=== PATIENT | male | born 1980 | race Caucasian/White ===

== ENCOUNTER 2016-08-15 13:18 | Emergency (ER) | payer BC ==
[2016-08-15] MEDS ORDERED: ACETAMINOPHEN IV (For NPO) 1,000 MG in EMPTY BAG 1 BAG IVPB STA (13:37)
[2016-08-15] MEDS ORDERED: FAMOTIDINE 20 MG/2 ML VIAL IV STA (13:39)
[2016-08-15] MEDS ORDERED: HYDROmorphone 1 MG/ML 1 ML SYRINGE IVP STA (13:39)
[2016-08-15] MEDS ORDERED: RX INFO: IV CONTRAST WAS GIVEN 1 EACH MISC MISCELLANE PRN (13:39)
[2016-08-15] MEDS ORDERED: METOCLOPRAMIDE 5 MG/ML 2 ML VIAL IVP STA (13:39)
--- NOTE | 2016-08-15 13:48 | ED ---
General Adult HPI - General Chief complaint: Abdominal Pain Stated complaint: Abd Pain Time Seen by Provider: 08/15/16 13:35 Source: patient, RN notes reviewed Mode of arrival: wheelchair Limitations: no limitations - History of Present Illness Initial comments: Patient is a pleasant 36-year-old male presenting to the emergency department complaining of abdominal discomfort. Onset of symptoms was this morning. Patient has had diarrhea over a dozen times. Patient did have a couple episodes of emesis. Patient did have one syncopal episode during emesis. No chest pain or dyspnea. Patient does have some abdominal discomfort. No history of chronic abdominal problems. - Related Data Home Medications Medication Instructions Recorded Confirmed Multivitamins, Thera [Multivitamin] 1 tab PO DAILY 03/07/16 08/15/16 Previous Rx's Medication Instructions Recorded Omeprazole [PriLOSEC] 40 mg PO AC-BRKFST #14 capsule. 03/07/16 Amoxic-Pot Clav 875-125Mg 1 tab PO Q12HR #20 tablet 08/15/16 [Augmentin 875-125] Dicyclomine HCl [Bentyl] 20 mg PO QID PRN #15 tab 08/15/16 Ondansetron Odt [Zofran Odt] 4 mg PO Q8HR PRN #10 tab 08/15/16 Allergies Allergy/AdvReac Type Severity Reaction Status Date / Time levofloxacin [From Levaquin] AdvReac Chest Pain Verified 08/15/16 13:57 nitroglycerin AdvReac Swelling Verified 08/15/16 13:57 Review of Systems ROS Statement: Those systems with pertinent positive or pertinent negative responses have been documented in the HPI. ROS Other: All systems not noted in ROS Statement are negative. Constitutional: Reports: chills Eyes: Denies: eye pain ENT: Denies: ear pain Respiratory: Denies: cough, dyspnea Cardiovascular: Denies: chest pain, palpitations Endocrine: Denies: fatigue Gastrointestinal: Reports: abdominal pain, nausea, vomiting, diarrhea Genitourinary: Denies: dysuria Musculoskeletal: Denies: back pain Skin: Denies: rash Neurological: Denies: weakness Past Medical History Past Medical History: GERD/Reflux History of Any Multi-Drug Resistant Organisms: None Reported Past Surgical History: Orthopedic Surgery Additional Past Surgical History / Comment(s): RIGHT FOOT, LEFT FOOT, RIGHT SHOULDER Past Anesthesia/Blood Transfusion Reactions: No Reported Reaction Past Psychological History: No Psychological Hx Reported Smoking Status: Former smoker Past Alcohol Use History: None Reported Past Drug Use History: None Reported - Past Family History Father Family Medical History: Hypertension Additional Family Medical History / Comment(s): Afib Mother Family Medical History: Diabetes Mellitus, Myocardial Infarction ([place]) General Exam Limitations: no limitations General appearance: alert Head exam: Present: atraumatic, normocephalic Eye exam: Present: normal appearance, PERRL ENT exam: Present: normal oropharynx Neck exam: Present: normal inspection Respiratory exam: Present: normal lung sounds bilaterally Cardiovascular Exam: Present: regular rate, normal rhythm Expanded Peripheral pulses: 2+: Dorsalis Pedis (R), Dorsalis Pedis (L) GI/Abdominal exam: Present: soft, tenderness (Mild tenderness suprapubic and left lower quadrant), normal bowel sounds. Absent: distended, guarding, rebound , rigid, pulsatile mass Extremities exam: Present: normal inspection. Absent: pedal edema, calf tenderness Neurological exam: Present: alert. Absent: motor sensory deficit Psychiatric exam: Present: normal affect, normal mood Skin exam: Absent: rash Course Vital Signs 08/15/16 08/15/16 13:29 15:10 Temperature 100.4 F H Pulse Rate 104 H 102 H Respiratory 18 16 Rate Blood Pressure 143/77 102/65 O2 Sat by Pulse 97 98 Oximetry EKG Findings - EKG Comments: EKG Findings:: Sinus tachycardia 104. SC 144. QRS 102. QT 340. QTc 457. Normal axis. Inferior Q waves. No acute ST change. Medical Decision Making - Medical Decision Making Patient reexamined and significant improved. Abdomen is soft with mild lower tenderness. Patient is comfortable with discharge home. Patient is able to tolerate ice chips. Patient and family updated on results. - Lab Data Result diagrams: 08/15/16 14:10 08/15/16 14:10 Lab Results 08/15/16 08/15/16 08/15/16 Range/Units 14:10 14:10 14:10 WBC 14.2 H (3.8-10.6) k/uL RBC 5.55 (4.30-5.90) m/uL Hgb 16.0 (13.0-17.5) gm/dL Hct 46.9 (39.0-53.0) % MCV 84.5 (80.0-100.0) fL MCH 28.8 (25.0-35.0) pg MCHC 34.1 (31.0-37.0) g/dL RDW 13.4 (11.5-15.5) % Plt Count 262 (150-450) k/uL Neutrophils % 93 % Lymphocytes % 3 % Monocytes % 3 % Eosinophils % 1 % Basophils % 0 % Neutrophils # 13.2 H (1.3-7.7) k/uL Lymphocytes # 0.4 L (1.0-4.8) k/uL Monocytes # 0.4 (0-1.0) k/uL Eosinophils # 0.1 (0-0.7) k/uL Basophils # 0.0 (0-0.2) k/uL PT (9.0-12.0) sec INR (<1.1) APTT (22.0-30.0) sec Sodium 145 (137-145) mmol/L Potassium 4.4 (3.5-5.1) mmol/L Chloride 107 (98-107) mmol/L Carbon Dioxide 22 (22-30) mmol/L Anion Gap 16 mmol/L BUN 23 H (9-20) mg/dL Creatinine 0.99 (0.66-1.25) mg/dL Est GFR (MDRD) Af Amer >60 (>60 ml/min/1.73 sqM) Est GFR (MDRD) Non-Af >60 (>60 ml/min/1.73 sqM) Glucose 152 H (74-99) mg/dL Plasma Lactic Acid Cortes (0.7-2.0) mmol/L Calcium 9.7 (8.4-10.2) mg/dL Total Bilirubin 2.4 H (0.2-1.3) mg/dL AST 29 (17-59) U/L ALT 54 (21-72) U/L Alkaline Phosphatase 58 (38-126) U/L Total Creatine Kinase 182 H (55-170) U/L CK-MB (CK-2) 1.7 (0.0-2.4) ng/mL CK-MB (CK-2) Rel Index 0.9 Troponin I <0.012 (0.000-0.034) ng/mL Total Protein 8.0 (6.3-8.2) g/dL Albumin 5.0 (3.5-5.0) g/dL Amylase 51 (30-110) U/L Lipase 49 (23-300) U/L Urine Color Urine Appearance (Clear) Urine pH (5.0-8.0) Ur Specific [place] (1.001-1.035) Urine Protein (Negative) Urine Glucose (UA) (Negative) Urine Ketones (Negative) Urine Blood (Negative) Urine Nitrate (Negative) Urine Bilirubin (Negative) Urine Urobilinogen (<2.0) mg/dL Ur Leukocyte Esterase (Negative) 08/15/16 08/15/16 08/15/16 Range/Units 14:10 14:10 14:31 WBC (3.8-10.6) k/uL RBC (4.30-5.90) m/uL Hgb (13.0-17.5) gm/dL Hct (39.0-53.0) % MCV (80.0-100.0) fL MCH (25.0-35.0) pg MCHC (31.0-37.0) g/dL RDW (11.5-15.5) % Plt Count (150-450) k/uL Neutrophils % % Lymphocytes % % Monocytes % % Eosinophils % % Basophils % % Neutrophils # (1.3-7.7) k/uL Lymphocytes # (1.0-4.8) k/uL Monocytes # (0-1.0) k/uL Eosinophils # (0-0.7) k/uL Basophils # (0-0.2) k/uL PT 10.3 (9.0-12.0) sec INR 1.0 (<1.1) APTT 22.2 (22.0-30.0) sec Sodium (137-145) mmol/L Potassium (3.5-5.1) mmol/L Chloride (98-107) mmol/L Carbon Dioxide (22-30) mmol/L Anion Gap mmol/L BUN (9-20) mg/dL Creatinine (0.66-1.25) mg/dL Est GFR (MDRD) Af Amer (>60 ml/min/1.73 sqM) Est GFR (MDRD) Non-Af (>60 ml/min/1.73 sqM) Glucose (74-99) mg/dL Plasma Lactic Acid Cortes 1.6 (0.7-2.0) mmol/L Calcium (8.4-10.2) mg/dL Total Bilirubin (0.2-1.3) mg/dL AST (17-59) U/L ALT (21-72) U/L Alkaline Phosphatase (38-126) U/L Total Creatine Kinase (55-170) U/L CK-MB (CK-2) (0.0-2.4) ng/mL CK-MB (CK-2) Rel Index Troponin I (0.000-0.034) ng/mL Total Protein (6.3-8.2) g/dL Albumin (3.5-5.0) g/dL Amylase (30-110) U/L Lipase (23-300) U/L Urine Color Yellow Urine Appearance Clear (Clear) Urine pH 5.5 (5.0-8.0) Ur Specific [place] 1.027 (1.001-1.035) Urine Protein Trace H (Negative) Urine Glucose (UA) Negative (Negative) Urine Ketones Trace H (Negative) Urine Blood Negative (Negative) Urine Nitrate Negative (Negative) Urine Bilirubin Negative (Negative) Urine Urobilinogen <2.0 (<2.0) mg/dL Ur Leukocyte Esterase Negative (Negative) - Radiology Data Radiology results: report reviewed (Computed tomography scan of the abdomen pelvis shows prominent fluid-filled small bowel loops right lower quadrant consistent with enteritis. Appendix itself is normal. Reactive lymph nodes), image reviewed (Chest x-ray shows no acute process.) Disposition Clinical Impression: Enteritis Disposition: HOME SELF-CARE Condition: Stable Instructions: Enteritis (ED) Additional Instructions: Please follow-up with your doctor in the next day or 2 for recheck. Return for increased pain, fevers, not tolerating fluids, worsening symptoms or any other concerns. Prescriptions: Amoxic-Pot Clav 875-125Mg [Augmentin 875-125] 1 tab PO Q12HR #20 tablet Dicyclomine HCl [Bentyl] 20 mg PO QID PRN #15 tab PRN Reason: Pain Ondansetron Odt [Zofran Odt] 4 mg PO Q8HR PRN #10 tab PRN Reason: Nausea Referrals: Sanjay Fontana DO [Primary Care Provider] - 1-2 days
[2016-08-15 14:33] LABS: Basophils % (A) 0 %; CH 29.9; CHCM 35.5; Eosinophils # (A) 0.1 k/uL (0-0.7); Eosinophils % (A) 1 %; HCT 46.9 % (39.0-53.0); HDW 2.83; Luc # (Auto) 0.04; Luc % (Auto) 0; Lymphocytes # (A) 0.4 k/uL (1.0-4.8); Lymphocytes % (A) 3 %; MCH 28.8 pg (25.0-35.0); MCHC 34.1 g/dL (31.0-37.0); MCV 84.5 fL (80.0-100.0); Mean Platelet Volume 6.9; Monocytes # (A) 0.4 k/uL (0-1.0); Monocytes % (A) 3 %; Neutrophils # (A) 13.2 k/uL (1.3-7.7); Neutrophils % (A) 93 %; RBC 5.55 m/uL (4.30-5.90); RDW 13.4 % (11.5-15.5); WBC 14.2 k/uL (3.8-10.6); WBC (Perox) 14.22
[2016-08-15] MEDS: SODIUM CHLORIDE 0.9% 500 ML IV SCH ×4 (14:35→16:05)
[2016-08-15 14:41] LABS: Partial Thromboplastin Time 22.2 sec (22.0-30.0); Prothrombin Time 10.3 sec (9.0-12.0)
[2016-08-15 14:42] LABS: ALT 54 U/L (21-72); AST 29 U/L (17-59); Alkaline Phosphatase 58 U/L (38-126); Amylase 51 U/L (30-110); Anion Gap 16 mmol/L; Blood Urea Nitrogen 23 mg/dL (9-20); Calcium 9.7 mg/dL (8.4-10.2); Carbon Dioxide 22 mmol/L (22-30); Chloride 107 mmol/L (98-107); Glucose 152 mg/dL (74-99); Non-African American GFR(MDRD) >60 (>60 ml/min/1.73 sqM); Potassium 4.4 mmol/L (3.5-5.1); Sodium 145 mmol/L (137-145); Total Bilirubin 2.4 mg/dL (0.2-1.3)
[2016-08-15 14:53] LABS: Creatine Kinase 182 U/L (55-170)
[2016-08-15 14:53] LABS: Appearance,Urine Clear (Clear); Bilirubin,Urine Negative (Negative); Glucose,Urine (UA) Negative (Negative); Ketones,Urine Trace (Negative); Leukocyte Esterase,Urine Negative (Negative); Nitrite,Urine Negative (Negative); PH, Urine 5.5 (5.0-8.0); Protein,Urine Trace (Negative); Specific Gravity,Urine 1.027 (1.001-1.035); UA Billing (MACRO vs. MICRO) CHEM; Urobilinogen,Urine <2.0 mg/dL (<2.0)
[2016-08-15 15:07] LABS: Creatine Kinase MB 1.7 ng/mL (0.0-2.4); Troponin I <0.012 ng/mL (0.000-0.034)
[2016-08-15 15:15] VITALS: RESP 16
--- NOTE | 2016-08-15 15:23 | XR ---
EXAMINATION TYPE: XR chest 2V DATE OF EXAM: 08/15/2016 2:54 PM COMPARISON: 03/07/2016 HISTORY: Fever FINDINGS: The lungs are clear and there is no pneumothorax, pleural effusion, or focal pneumonia. IMPRESSION: 1. No acute process.
--- NOTE | 2016-08-15 15:38 | CT ---
EXAMINATION TYPE: CT abdomen pelvis w con DATE OF EXAM: 08/15/2016 3:10 PM COMPARISON: 10/21/2011 HISTORY: 36-year-old male complains of epigastric to umbilical pain. TECHNIQUE: Contiguous axial scanning of the abdomen and pelvis following administration of 100 ml Omn ipaque 300 IV contrast. Delayed images through the kidneys and coronal/sagittal reconstructions perf ormed. CT DLP: 617.6 mGycm Automated exposure control for dose reduction was used. FINDINGS: Heart is upper limits of normal in size without pericardial effusion. Some hazy densities in the lowe r lungs may relate to dependent atelectasis. No pleural effusion. Low attenuation of the hepatic parenchyma as compared to the spleen on portal venous phase. No focal liver lesion. Portal venous system is patent. No biliary ductal dilatation. Gallbladder, adrenal glands, kidneys, spleen and inferior splenule, and pancreas appear within normal limits. No dilated small bowel, free fluid, or free air. Numerous scattered nonenlarged mesenteric lymph nodes. A few mildly enlarged right lower quadrant mes enteric lymph nodes measure up to 8 mm. Prominent fluid-filled small bowel loops in the right lower quadrant and liquid stool throughout the right hemicolon. No pericolonic inflammatory change. Normal appendix. Bladder is nondistended. No abnormal fluid collection in the pelvis or pelvic lymphadenopathy seen. Bones: No osseous destructive process. IMPRESSION: 1. PROMINENT FLUID-FILLED SMALL BOWEL LOOPS IN THE RIGHT LOWER QUADRANT WITH LIQUID STOOL IN THE RIGH T HEMICOLON. PROBABLY FOR ENTERITIS. THE APPENDIX ITSELF IS NORMAL. 2. SOME MILDLY ENLARGED RIGHT LOWER QUADRANT MESENTERIC LYMPH NODES ARE LIKELY REACTIVE. 3. SUSPECT UNDERLYING HEPATIC STEATOSIS. CORRELATE WITH LFT's, LIPID PROFILE, AND PATIENT RISK FACTOR S.
[2016-08-15 16:36] VITALS: BP 112/65; PULSE 90; TEMP 97.5
== END 2016-08-15 17:02 | disposition home or self-care (01) ==
LOC: EC 13:18
DX: K52.9 Noninfective gastroenteritis and colitis, unspecified (principal); R55 Syncope and collapse; R00.0 Tachycardia, unspecified; K21.9 Gastro-esophageal reflux disease without esophagitis; F17.200 Nicotine dependence, unspecified, uncomplicated; Z79.899 Other long term (current) drug therapy; Z88.1 Allergy status to other antibiotic agents; Z88.8 Allergy status to other drugs, medicaments and biological substances
CPT/HCPCS: 99284 ×2; 96374 ×2; 96375 ×4; 96361 ×3; 36415; 93005; 80053; 82150; 82550; 82553; 83605; 83690; 84484; 85025; 85610; 85730; 81003; 87040; 87086; 71020; 74177; J2765; Q9967; J1170; J0131

== ENCOUNTER 2017-10-26 23:04 | Emergency (ER) | payer BC ==
[2017-10-26 23:08] VITALS: RESP 20
[2017-10-26] MEDS ORDERED: MORPHINE SULFATE 4 MG/ML SYRINGE IV STA (23:24)
[2017-10-26] MEDS ORDERED: SODIUM CHLORIDE 0.9% 2,000 ML IV STA (23:24)
[2017-10-26] MEDS ORDERED: ONDANSETRON 4 MG/2 ML VIAL IVP STA (23:24)
[2017-10-26] MEDS ORDERED: DICYCLOMINE 10 MG/ML 2 ML AMP IM STA (23:24)
[2017-10-26 23:35] LABS: Basophils % (A) 0 %; Eosinophils # (A) 0.1 k/uL (0-0.7); Eosinophils % (A) 1 %; HGB 15.1 gm/dL (13.0-17.5); Lymphocytes # (A) 0.5 k/uL (1.0-4.8); Lymphocytes % (A) 4 %; MCH 29.1 pg (25.0-35.0); MCV 83.2 fL (80.0-100.0); Mean Platelet Volume 6.5; Monocytes # (A) 0.4 k/uL (0-1.0); Monocytes % (A) 3 %; Neutrophils % (A) 92 %; Platelet Count 274 k/uL (150-450); RBC 5.17 m/uL (4.30-5.90); RDW 12.9 % (11.5-15.5); WBC 14.1 k/uL (3.8-10.6)
--- NOTE | 2017-10-26 23:38 | ED ---
Abdominal Pain HPI - General Chief Complaint: Abdominal Pain Stated Complaint: Abdominal Pain Time Seen by Provider: 10/26/17 23:06 Source: patient, EMS, RN notes reviewed, old records reviewed Mode of arrival: EMS Limitations: no limitations - History of Present Illness Initial Comments: This patient is a 29-year-old male presents emergency Department chief complaint of diarrhea and cramping abdominal pain from 3 PM this evening. He reports that it occurred 2 hours after eating pizza. Patient states that he was recently admitted to [facility] and had a scope completed. He was recently diagnosed with gastric ulcers. He is currently being maintained on omeprazole. He has been watching his diet up until this point. He states he's had no blood in his stools. He has had over 12 episodes of diarrhea. He reports no abdominal pain and cramping. No fevers or chills. He states he feels very weak and dehydrated. No vomiting as well. - Related Data Home Medications Medication Instructions Recorded Confirmed Multivitamins, Thera [Multivitamin] 1 tab PO DAILY 03/07/16 10/26/17 Lisinopril [Zestril] 10 mg PO DAILY 07/07/17 10/26/17 Omeprazole [PriLOSEC] 40 mg PO DAILY 07/07/17 10/26/17 Allergies Allergy/AdvReac Type Severity Reaction Status Date / Time levofloxacin [From Levaquin] AdvReac Chest Pain Verified 10/26/17 23:25 nitroglycerin AdvReac Swelling Verified 10/26/17 23:25 Review of Systems ROS Statement: Those systems with pertinent positive or pertinent negative responses have been documented in the HPI. ROS Other: All systems not noted in ROS Statement are negative. Past Medical History Past Medical History: GERD/Reflux Additional Past Medical History / Comment(s): stomach ulcers, GI bleed History of Any Multi-Drug Resistant Organisms: None Reported Past Surgical History: AICD, Orthopedic Surgery Additional Past Surgical History / Comment(s): RIGHT FOOT, LEFT FOOT, RIGHT SHOULDER Past Anesthesia/Blood Transfusion Reactions: No Reported Reaction Past Psychological History: No Psychological Hx Reported Smoking Status: Former smoker Past Alcohol Use History: None Reported Past Drug Use History: None Reported - Past Family History Father Family Medical History: Hypertension Additional Family Medical History / Comment(s): Afib Mother Family Medical History: Diabetes Mellitus, Myocardial Infarction ([place]) General Exam - General Exam Comments Initial Comments: 29-year-old male. Patient appears in moderate discomfort. Limitations: no limitations General appearance: alert, in no apparent distress Head exam: Present: atraumatic, normocephalic, normal inspection Eye exam: Present: normal appearance, PERRL, EOMI. Absent: scleral icterus, conjunctival injection, periorbital swelling ENT exam: Present: normal exam, mucous membranes moist Neck exam: Present: normal inspection. Absent: tenderness, meningismus, lymphadenopathy Respiratory exam: Present: normal lung sounds bilaterally. Absent: respiratory distress, wheezes, rales, rhonchi, stridor Cardiovascular Exam: Present: regular rate, normal rhythm, normal heart sounds. Absent: systolic murmur, diastolic murmur, rubs, gallop, clicks GI/Abdominal exam: Present: soft, hyperactive bowel sounds. Absent: distended, tenderness, guarding, rebound, rigid, normal bowel sounds Extremities exam: Present: normal inspection, full ROM, normal capillary refill. Absent: tenderness, pedal edema, joint swelling, calf tenderness Back exam: Present: normal inspection Neurological exam: Present: alert, oriented X3, CN II-XII intact Psychiatric exam: Present: normal affect, normal mood Skin exam: Present: warm, dry, intact, normal color. Absent: rash Course Vital Signs 10/26/17 10/27/17 10/27/17 23:05 00:08 01:00 Temperature 98.1 F 98 F Pulse Rate 99 99 100 Respiratory 20 20 20 Rate Blood Pressure 115/65 117/64 99/57 O2 Sat by Pulse 97 99 99 Oximetry - Reevaluation(s) Reevaluation #1: 10/27/17 00:59 Patient is reevaluated this time he states his pain is out of 10. He is resting comfortably in bed Medical Decision Making - Medical Decision Making This patient is a 29-year-old male presents emergency Department chief complaint of diarrhea and cramping abdominal pain from 3 PM this evening. He reports that it occurred 2 hours after eating pizza. Patient states that he was recently admitted to [facility] and had a scope completed. He was recently diagnosed with gastric ulcers. Patient does have hyperactive bowel sounds. He has no specific tenderness at this time. Patient was given IV fluids and lab work obtained. Patient does have a mildly elevated white blood cell count. He has had multiple episodes of diarrhea. He does report that he' s had no blood in his stools. Patient was given pain medication, GI cocktail. He is also given 2 L of fluids due to the amount of diarrhea as had. While in the emergency department patient reports that he did start to feel better slipped receiving a GI cocktail and Imodium. He has no significant abdominal tenderness. He states that he does feel better at this time and started like to go home. Discussed I'll discharge the patient with a starter pack for Lomotil feels any further diarrhea. Discussed return parameters, and if he would likely have more continuing pain that he could return for further evaluation with CAT scan. I do believe that his symptoms are related to a gastroenteritis possibly due to a he ate today. Discussed clear liquid diet and slowly advancing to soft foods with him the next 24 hours. Patient agrees to treatment plan will comply. Return parameters were discussed. - Lab Data Result diagrams: 10/26/17 23:09 10/26/17 23:09 Lab Results 10/26/17 10/26/17 10/27/17 Range/Units 23:09 23:09 00:26 WBC 14.1 H (3.8-10.6) k/uL RBC 5.17 (4.30-5.90) m/uL Hgb 15.1 (13.0-17.5) gm/dL Hct 43.0 (39.0-53.0) % MCV 83.2 (80.0-100.0) fL MCH 29.1 (25.0-35.0) pg MCHC 35.0 (31.0-37.0) g/dL RDW 12.9 (11.5-15.5) % Plt Count 274 (150-450) k/uL Neutrophils % 92 % Lymphocytes % 4 % Monocytes % 3 % Eosinophils % 1 % Basophils % 0 % Neutrophils # 13.0 H (1.3-7.7) k/uL Lymphocytes # 0.5 L (1.0-4.8) k/uL Monocytes # 0.4 (0-1.0) k/uL Eosinophils # 0.1 (0-0.7) k/uL Basophils # 0.0 (0-0.2) k/uL Sodium 141 (137-145) mmol/L Potassium 3.9 (3.5-5.1) mmol/L Chloride 108 H (98-107) mmol/L Carbon Dioxide 18 L (22-30) mmol/L Anion Gap 15 mmol/L BUN 22 H (9-20) mg/dL Creatinine 0.75 (0.66-1.25) mg/dL Est GFR (CKD-EPI)AfAm >90 (>60 ml/min/1.73 sqM) Est GFR (CKD-EPI)NonAf >90 (>60 ml/min/1.73 sqM) Glucose 159 H (74-99) mg/dL Calcium 9.2 (8.4-10.2) mg/dL Total Bilirubin 1.6 H (0.2-1.3) mg/dL AST 19 (17-59) U/L ALT 33 (21-72) U/L Alkaline Phosphatase 51 (38-126) U/L Total Protein 6.9 (6.3-8.2) g/dL Albumin 4.3 (3.5-5.0) g/dL Amylase 66 (30-110) U/L Lipase 122 (23-300) U/L Urine Color Yellow Urine Appearance Clear (Clear) Urine pH 5.0 (5.0-8.0) Ur Specific [place] 1.023 (1.001-1.035) Urine Protein Trace H (Negative) Urine Glucose (UA) Negative (Negative) Urine Ketones Negative (Negative) Urine Blood Negative (Negative) Urine Nitrite Negative (Negative) Urine Bilirubin Negative (Negative) Urine Urobilinogen <2.0 (<2.0) mg/dL Ur Leukocyte Esterase Negative (Negative) Disposition Clinical Impression: Gastritis, Diarrhea Disposition: HOME SELF-CARE Condition: Good Instructions: Gastritis (ED), Diet for Stomach Ulcers and Gastritis (ED), Acute Diarrhea (ED) Additional Instructions: Patient advised to rest, increase her fluid intake. He continues the Lomotil starter pack as needed take 1 tablet each time of diarrhea and no more than 5 tablets a day. Patient should use the nausea medicine as prescribed. Continue your at home omeprazole. Clear liquid diet and slowly advance her diet to bananas, rice, applesauce and toast in another 24 hours. Patient should return to the emergency department if any alarming signs or symptoms occur. Referrals: Ana Munguia MD [Primary Care Provider] - 1-2 days Time of Disposition: 01:14
[2017-10-26 23:44] LABS: ALT 33 U/L (21-72); AST 19 U/L (17-59); Albumin 4.3 g/dL (3.5-5.0); Alkaline Phosphatase 51 U/L (38-126); Amylase 66 U/L (30-110); Anion Gap 15 mmol/L; Blood Urea Nitrogen 22 mg/dL (9-20); Calcium 9.2 mg/dL (8.4-10.2); Carbon Dioxide 18 mmol/L (22-30); Chloride 108 mmol/L (98-107); Glucose 159 mg/dL (74-99); Lipase 122 U/L (23-300); Potassium 3.9 mmol/L (3.5-5.1); Sodium 141 mmol/L (137-145); Total Bilirubin 1.6 mg/dL (0.2-1.3); Total Protein 6.9 g/dL (6.3-8.2)
--- NOTE | 2017-10-26 23:54 | XR ---
EXAMINATION TYPE: XR KUB DATE OF EXAM: 10/26/2017 COMPARISON: 10/21/2011 HISTORY: Abdominal pain TECHNIQUE: 2 views FINDINGS: There is no sign of intestinal obstruction or pneumoperitoneum. Fecal pattern is normal. Nyla ng bases are clear. There are no pathologic calcifications over the kidneys. IMPRESSION: Nonacute abdomen. No change.
[2017-10-27] MEDS ORDERED: METOCLOPRAMIDE 5 MG/ML 2 ML VIAL IVP STA (00:19)
[2017-10-27] MEDS ORDERED: LOPERAMIDE 2 MG CAP PO STA (00:19)
[2017-10-27] MEDS ORDERED: MAG HYDROX/AL HYDROX/SIMETH 30 ML, HYOSCYAMINE ELIXIR 10 ML, CIMETIDINE HCL 300 MG PO STA ×3 (00:20)
[2017-10-27 00:40] LABS: Appearance,Urine Clear (Clear); Bilirubin,Urine Negative (Negative); Blood,Urine Negative (Negative); Color,Urine Yellow; Glucose,Urine (UA) Negative (Negative); Ketones,Urine Negative (Negative); Leukocyte Esterase,Urine Negative (Negative); Nitrite,Urine Negative (Negative); Protein,Urine Trace (Negative); Specific Gravity,Urine 1.023 (1.001-1.035); Urobilinogen,Urine <2.0 mg/dL (<2.0)
[2017-10-27 01:14] VITALS: BP 99/57; PULSE 100; TEMP 98
[2017-10-27] MEDS ORDERED: DIPHENOX-ATROP STARTER PACK 8 TAB BTL PO STA (01:14)
== END 2017-10-27 01:23 | disposition home or self-care (01) ==
LOC: EC 23:04
DX: K29.70 Gastritis, unspecified, without bleeding (principal); D72.829 Elevated white blood cell count, unspecified; K21.9 Gastro-esophageal reflux disease without esophagitis; Z87.891 Personal history of nicotine dependence; Z79.899 Other long term (current) drug therapy; Z88.1 Allergy status to other antibiotic agents; Z88.8 Allergy status to other drugs, medicaments and biological substances; Z87.19 Personal history of other diseases of the digestive system
CPT/HCPCS: 36415; 80053; 82150; 83690; 85025; 81003; 74018; 99285; 96374; 96375 ×2; 96361; 96372; J2270; J0500; J2765; J2405